=== PATIENT | female | born 1995 | race Caucasian/White ===

== ENCOUNTER 2019-06-30 14:14 | Emergency (ER) | payer SELFPAY ==
[2019-06-30 14:18] VITALS: BP 126/79; PULSE 77; RESP 16; TEMP 36.7; O2SAT 100
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
--- NOTE | 2019-06-30 14:45 | XR_ITS ---
WS: [id number] Facial bones 3 views. COMPARISON: Left-sided face pain. No facial bone fractures are identified. No air-fluid levels in the sinuses. Nasal bones are intact. XR/XR facial bones min 3V* 85833 IMPRESSION: Negative facial bone radiographs.
[2019-06-30] MEDS: ondansetron 2 mg/ML SDV 2 mL 4 MG IM (15:33)
[2019-06-30 16:11] VITALS: BP 112/75; PULSE 64; RESP 18; O2SAT 100
[2019-06-30 16:21] LABS: HCG Qualitative Urine. Negative (Negative)
[2019-06-30 16:52] VITALS: BP 112/75; PULSE 75; RESP 16; O2SAT 100
== END 2019-06-30 16:53 | disposition home or self-care (01) ==
PROVIDERS: Emergency Provider Emergency Medicine; Family Provider Nurse Practitioner Family; PCP Nurse Practitioner Family
DX: M79.18 Myalgia, other site (principal); V43.53XA Car driver injured in collision with pick-up truck in traffic accident, initial encounter; F17.210 Nicotine dependence, cigarettes, uncomplicated
CPT/HCPCS: 70150; 71101; 72170; 73560; 81025; 96372; 99281; J2405

== ENCOUNTER → 2021-09-15 11:18 | Outpatient (BNVA) | payer BC, MEDICAID, SELFPAY | PROVIDERS: Family Provider Nurse Practitioner Family; PCP Nurse Practitioner Family; Visit Provider Registered Nurse Neonatal Intensive Care | DX: N39.0 Urinary tract infection, site not specified (principal) | CPT/HCPCS: 81000; 87086 ==

== ENCOUNTER 2024-01-01 13:03 | Outpatient (CLI) | payer BC, MEDICAID, SELFPAY ==
--- NOTE | 2024-01-01 13:45 | MR_ITS ---
WS: [id number] MRI BRAIN WITH AND WITHOUT CONTRAST HISTORY: G43.711 - Chronic migraine without aura, intractable, wit... COMPARISON: CT head 08/14/2018, MRI 10/09/2017 TECHNIQUE: Multiplanar imaging performed through the brain with MultiHance 13 ml's IV. No acute infarcts are seen. [place]-white matter differentiation is well preserved. Normal temporal lobe s. No susceptibility artifacts or prior lacunar infarcts. Ventricles and extra-axial spaces are normal. Clivus and pituitary gland are normal. Visualized posterior fossa and brainstem are also normal. Postcontrast images are negative for masses or vascular malformations. Dural venous sinuses are normal. Paranasal sinuses: Subcentimeter LEFT maxillary sinus mucous retention cyst. Mastoid air cells: Normal. Calvarium and scalp: Normal. MR/MR head wo/w con [id number] IMPRESSION: 1. Normal MRI brain with contrast. No mass or atrophy. No signal abnormalities . 2. Subcentimeter LEFT maxillary mucous retention cyst.
== END 2024-01-01 13:04 | disposition home or self-care (01) ==
LOC: RAD 13:03
PROVIDERS: Family Provider Nurse Practitioner Family; PCP Nurse Practitioner Family; Visit Provider Specialist
DX: G43.711 Chronic migraine without aura, intractable, with status migrainosus (principal); J34.1 Cyst and mucocele of nose and nasal sinus
CPT/HCPCS: 70553; A9577

== ENCOUNTER → 2024-04-01 12:44 | Outpatient (BNVA) | payer BC, MEDICAID, SELFPAY | PROVIDERS: Family Provider Nurse Practitioner Family; PCP Nurse Practitioner Family; Visit Provider Nurse Practitioner | DX: J02.9 Acute pharyngitis, unspecified (principal) | CPT/HCPCS: 87880 ==

== ENCOUNTER → 2024-05-02 13:50 | Outpatient (BNVA) | payer BC, MEDICAID, SELFPAY | PROVIDERS: Family Provider Nurse Practitioner Family; PCP Nurse Practitioner Family; Visit Provider Nurse Practitioner | DX: R05.9 Cough, unspecified (principal); J06.9 Acute upper respiratory infection, unspecified | CPT/HCPCS: 87400; 87426 ==

== ENCOUNTER → 2024-12-08 11:30 | Outpatient (BNVA) | payer BC, MEDICAID, SELFPAY | PROVIDERS: Family Provider Nurse Practitioner Family; PCP Nurse Practitioner Family; Referring Provider Nurse Practitioner Family; Visit Provider Internal Medicine Rheumatology | DX: R76.8 Other specified abnormal immunological findings in serum (principal); Z79.899 Other long term (current) drug therapy | CPT/HCPCS: 36415; 72100; 72202; 80076; 82306; 82565; 82607; 82746; 83520; 84439; 84443; 85025; 85651; 86140; 86160; 86162; 86200; 86235; 86255; 86376; 86431; 86480; 86704; 86803; 86812; 87340 ==

== ENCOUNTER 2025-01-31 08:56 | Outpatient (CLI) | payer BC, MEDICAID, SELFPAY ==
[2025-01-31 09:35] LABS: Hematocrit 36.9 % (36-47); Hemoglobin 12.50 g/dL (11.27-16.99); Mean Corpuscular HGB Conc 33.9 g/dL (30-55); Mean Corpuscular Hemoglobin 34.0 pg (27-33); Mean Corpuscular Volume 100.3 fl (85-98); Nucleated Red Blood Cells % 0 %; Platelet Count 242 10^3/cmm (157-399); Red Blood Count 3.68 10^6/uL (3.85-5.65); White Blood Count 6.30 10^3/uL (3.29-11.43)
[2025-01-31 09:54] LABS: Alanine Aminotransferase 12 U/L (0-33); Albumin Level 4.3 g/dL (3.5-5.2); Alkaline Phosphatase 39 U/L (35-105); Aspartate Amino Transferase 13 U/L (0-32); Globulin 2.2 g/dL (1.3-4.6); Total Protein 6.5 g/dL (6.6-8.7)
== END 2025-01-31 08:57 | disposition home or self-care (01) ==
LOC: LAB 08:58
PROVIDERS: Family Provider Nurse Practitioner Family; PCP Nurse Practitioner Family; Visit Provider Internal Medicine Rheumatology
DX: Z79.899 Other long term (current) drug therapy (principal); R76.8 Other specified abnormal immunological findings in serum; M54.89 Other dorsalgia
CPT/HCPCS: 36415; 80076; 82565; 85025; 85651; 86140